=== PATIENT | male | born 1945 | race Caucasian/White ===

== ENCOUNTER 2016-09-27 06:10 | Day surgery (SDC) | payer MEDICARE ==
--- NOTE | 2016-09-25 15:50 | PCM.ANEPRE ---
Anesthesia Pre-Op Review Reason for Review: SURGEON'S REQUEST-"CARDIAC CONCERNS", BMI 44.68, STOP BANG Anesthesia Recommendations: Proceed with Procedure Additional Comments 70yo M scheduled for knee arthroscopy. 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 It responded well to adenosine. Work-up since that time has been negative including nuclear stress test and echo. Both of which were essentially normal. He is on a beta-michael which he should definitely take on the DOS or on the night before surgery--whichever he is normally scheduled for. Otherwise this is a low-risk procedure in a patient who has a negative cardiac w/u. Re- evaluate on DOS. Main Gonzalez MD Sep 25, 2016 15:49
[~2016-09-27] VITALS: Ht 172.7 cm; Wt 131.0 kg
[2016-09-27] VITALS (17 sets, daily range): BP systolic 54–117; BP diastolic 36–68; PULSE 60–80; RESP 12–24; O2SAT 91–97
[~2016-09-27 06:10] MED LIST: ACET325C PO; ALBU8.5H2 INHALATION; ALBU90AE IH; CIPR-231 PO; CLOB15CR3 TOP; COLC0.6T52 PO; CeFAZolin Inj 3 GM in Dextrose 5% 50 ML IV ONE; CeFAZolin Inj 3 GM in IV Premix 1 EACH IV ONE; FENO200C PO; FURO80TA83 PO; INSU100I18 SUBQ; IPRA3AMP IH; LISI-571 PO; Lactated Ringer's 1,000 ML IV SCH; METO25TA6 PO; NPH,100I SUBQ; SERT100T9 PO; SIMV40TA5 PO; TAMS0.4C98 PO; ZYL100 PO
[2016-09-27] MEDS ORDERED: EPHEDrine/NS 5 mg/mL 5 mL Syringe ONE (06:11)
[2016-09-27] MEDS ORDERED: fentaNYL-PF 50 mCg/mL 2 mL Inj ONE (06:11)
[2016-09-27] MEDS ORDERED: Phenylephrine/NS 100 mCg/mL 10 mL Syringe IVPUSH ONE (06:11)
[2016-09-27] MEDS ORDERED: Chloroprocaine-MPF 2% 20 mL Inj ONE (06:11)
[2016-09-27] MEDS ORDERED: CeFAZolin Inj 3 Gm/ D5W 50 mL Bag IV ONE (06:19)
[2016-09-27] MEDS ORDERED: Lactated Ringer's 1,000 ML IV ONE (06:50)
[2016-09-27] MEDS ORDERED: MethylprednisoLONE Depot 40 mg/mL Inj ARTICULAR ONE (08:45)
[2016-09-27] MEDS ORDERED: Lidocaine 2%-Epi 1:100,000 20 mL Inj INFILTRATE ONE (08:45)
[2016-09-27] MEDS ORDERED: Lactated Ringer's 500 ML IV PRN (08:56)
[2016-09-27] MEDS ORDERED: Lactated Ringer's 1,000 ML IV SCH (08:56)
--- NOTE | 2016-09-27 08:56 | PCM.HPANE ---
Patient Data Date of Service: Sep 27, 2016 (0810) Surgeon Admitting Provider: Attending Provider:Jonathan Alarcon MD Primary Care Physician:Jesús Jackson MD Other Provider: Reason for Visit Left Knee Medial Meniscus Tear Ht/WT & BMI Height (Feet): 5 Height (Inches): 8.00 Weight (Kilograms): 131.040 Body Mass Index 43.00 Allergies Coded Allergies: NSAIDS (Non-Steroidal Anti-Inflamma (Verified Allergy, Unknown, UNKNOWN, ) gabapentin (Verified Allergy, Unknown, UNKNOWN, 09/22/16) lisinopril (Verified Allergy, Unknown, UNKNOWN (PT IS TAKING LOW-DOSE DRUG ), 09/22/16) metformin (Verified Allergy, Unknown, UNKNOIWN, 09/22/16) tamsulosin (Verified Adverse Reaction, Severe, DIZZINESS (PT DENIES ALLERGY & IS TAKING DRUG), 09/22/16) Past Anesthesia History Anesthesia History: Denies:: Anesthesia Reactions, Malignant Hyperthermia Diabetes History Hx Diabetes?: Yes (NPH 50 units @0530) Type of Diabetes: Type II Glycemic Control: Insulin Dependent Current Bedside Blood Glucose: 177 MRSA MRSA: No Medications Hypertension Medication: Yes (LISINOPRIL,LASIX) Home Meds Incl Beta Phylicia: Yes (metoprolol) Date Beta Phylicia Taken: Sep 27, 2016 Time Beta Phylicia Taken: 614 Active Scripts Tamsulosin (Flomax)0.4 Mg Capsule0.4 Mg PO DAILY #30 CAPSULE Prov:CHRIS HUGHES DO 06/26/16 Reported Medications Simvastatin 40 Mg Xljpcl29 Mg PO HS 30 Days Ref 0 09/22/16 Acetaminophen 325 Mg Dxrzdsk331-011 Mg PO Q6H PRN PRN 09/22/16 Sertraline HCl (Sertraline)100 Mg Hzlgwz927 Mg PO DAILY 30 Days Ref 0 09/22/16 Albuterol Sulfate (Proair Respiclick)90 Mcg Aer.pow.ba90 Mcg IH Q4-6H PRN PRN 09/22/16 Albuterol HFA (Proair HFA)8.5 Gm Hfa.aer.ad2 Puffs INHALATION Q4H PRN PRN #1 INHALER 09/22/16 Metoprolol Tartrate 25 Mg Oatppq62 Mg PO BID 30 Days Ref 0 09/22/16 Ipratropium/Albuterol Sulfate (Iprat-Albut 0.5-3(2.5) mg/3 mL Inhalant Soln)3 Ml Ampul.neb3 Ml IH AM Ref 0 09/22/16 NPH, Human Insulin Isophane (HUMulin-N U100 Insulin Kwikpen)100 Unit/1 Ml Insuln.pen75 Unit SUBQ BID #1 PENINJ Ref 0 09/22/16 Insulin Lispro (HumaLOG U100 Insulin Pen)100 Unit/1 Ml Insuln.pen1 Unit SUBQ ACHS #1 PENINJ Ref 0 Blood Sugar Lispro Correction <151 0 units 151-175 1 unit 176-200 2 units 201-225 3 units 226-250 4 units 251-275 5 units 276-300 6 units 301-325 7 units 326-350 8 units 351-375 9 units 376-400 10 units >400 12 units Check blood sugars before meals and at bedtime. Use correction factor only before meals. 09/22/16 Furosemide (Lasix)80 Mg Obpsfl615 Mg PO DAILY 30 Days Ref 0 09/22/16 Fenofibrate,Micronized (Fenofibrate)200 Mg Rjcalnr676 Mg PO DAILY Ref 0 09/22/16 Colchicine (Colcrys)0.6 Mg Tablet0.6 Mg PO DAILY PRN GOUT 09/22/16 Clobetasol Propionate/Emoll (Clobetasol Emollient 0.05% Crm)15 Gm Cream..g.1 Appl TOP BID #1 TUBE 09/22/16 Allopurinol 100 Mg Srfzlc011 Mg PO DAILY Ref 0 09/22/16 Discontinued Reported Medications Ciprofloxacin (Cipro)500 Mg Paaaoi971 Mg PO BID Ref 0 09/22/16 Discontinued Scripts Lisinopril 5 Mg Tablet2.5 Mg PO DAILY #30 TABLET Prov:CHRIS HUGHES DO 06/26/16 Atorvastatin Calcium 40 Mg Cynajw75 Mg PO HS #30 TABLET Prov:CHRIS HUGHES DO 06/26/16 Carvedilol 3.125 Mg Tablet3.125 Mg PO BIDWM #14 TABLET Prov:CHRIS HUGHES DO 06/26/16 History History of ENT Problems?: Yes HEENT History: Positive for:: Cataracts (S/P B/L EXTRACTIONS) Denture Type: Full- Upper Full- Lower Hx of Heart Problems?: Yes Cardiovascular History: Positive for:: Chest Pain Coronary Artery Disease (NSTEMI 06/2016) Edema Hypertension (HYPERLIPIDEMIA) Irregular Heartbeat (SVT-MAURI TACHYCARDIA TX W/ O2 & ADENOSINE RATE 160) Peripheral Vascular (S/P RT CAROTID ENDARTERECTOMY W/ SHUNT & PATCH) Denies:: Cardiac Surgery Congestive Heart Failure Heart Murmur (ECHO 06/2016 EF 60-65%) Pacemaker Thrombophlebitis Valvular Heart Disease Hx of Respiratory Problem?: Yes Respiratory History: Positive for:: COPD Dyspnea (PRINGLE ASSOC W/ NSTEMI 06/2016) Pneumonia Use of Inhalers / NEBS Denies:: Asthma Chest Surgery Emphysema Hemoptysis Tuberculosis Use of C-PAP Machine Hx Neurologic Problems?: Yes Neurological History: Positive for:: Headaches (migraines in the distant past) Denies:: Alzheimer's Disease CVA Dementia Dizziness Parkinson's Disease Seizures Hx of GI Problems?: Yes Other GI Pertinent History: S/P APPY Hx of Problems?: Yes Genitourinary History: Denies:: HX of Hemodialysis (HX CHRONIC RENAL INSUFFICIENCY) Kidney Stones Urinary Tract Infection HX of Peritoneal Dialysis: No Other Pertinent History: C/OF LUTS Male Hx: Positive for:: Prostate Problems (BPH) Denies:: Scrotal Mass Testicular Surgery Skin History: Denies:: History Skin Disorders? Pressure Ulcers Hx Musculoskeletal Problems?: Yes Musculoskeletal History: Positive for:: Back Injury (lower back pain, 2 prior herniated discs) Musculoskeletal Trauma (LT KNEE MENISCAL TEAR=CURRENT PROBLEM) Osteoarthritis Denies:: Joint Replacement Hx of Psycho/Social Problems?: Yes Psycho Social History: Positive for:: Hx Depression Denies:: Anxiety Bipolar Disorder Suicide Attempt Hx Surgeries?: Yes (SPINE SURGERY,CATARACTS,APPY,RT CAROTID ENDARTERECTOMY) Hx Any Other Health Problems?: Yes Other History: Positive for:: Hospitalization (pneumonia, back surgery, carotid endarterectomy) Denies:: Cancer Endocrine Disease Thyroid Disease History Blood Transfusions: Positive for:: Blood Transfusions Denies:: Blood Transfuse Reaction Hx Diabetes: Yes (NPH 50 units @0530)Bedside Blood Glucose: 177 Hx Alcohol Use: NoHx Substance Use: No Smoking Status: Former Smoker Have You Smoked inLast 12 mo: No Stop/Bang S-Snoring: Do You Snore Loudly: No T-Tired: feel tired, fatigued: Yes O-Obsered: Observed not breath: No P-Blood Pressure: treated: Yes B- Body Mass Index > 35 kg/m2: Yes A- Age over 50: Yes N- Neck Large Circumference: Yes G- Gender Male: Yes MIGUELINA Total Score: 6 Risk Assessment Category Category 1A: Patient has history of documented sleep apnea, and HAS NOT received any narcotic, sedative or anesthesia administration during this stay. Category 1B: Patient has history of documented sleep apnea, and HAS received any narcotic , sedative or anesthesia administration during this stay Category 2: Patient has SUSPECTED Obstructive Sleep Apnea, and HAS received any narcotic , sedative or anesthesia administration during this stay. Category 3: Patient has SUSPECTED Obstructive Sleep Apnea and HAS NOT received narcotic, sedative or anesthesia administration during this stay. Category 4: Outpatient in Procedural Areas with known sleep apnea or who screen positive for High Risk via the STOP/BANG questionnaire. Exam Exam Vital Signs Vital Signs Date Time Temp Pulse Resp B/P Pulse Ox O2 Delivery O2 Flow Rate FiO2 09/27/16 06:33 36.2 80 24 92/45 91 Room Air General Appearance: Alert, Oriented X3, Cooperative, No Acute Distress HEENT/AIRWAY: MP 3 Lungs: Diminished Heart: Exam Unremarkable Meds/Labs/Diagnostics Admission Meds Current Medications Lactated Ringer's (Lr) 1,000 ml @ ud STK-MED ONCE IV Last administered on 09/27t 06:50; Start 09/27/16 at 06:50; Stop 09/27/16 at 07:39; Status DC Bedside Blood Glucose: 177 Plan Impression Patient chart reviewed, patient interviewed and anesthestic plan with risks, benefits, and alternatives discussed, and informed consent obtained. NPO Status: 09/26@2100 ASA Physical Status: ASA3 Severe Disease (miguelina, iddm, morbid obesity) Anesthetic Plan: SAB Bene/Risks/Altern/Consents: Yes HP Complete Prior to Induction: Yes Miles Thao MD Sep 27, 2016 08:56
[2016-09-27] MEDS ORDERED: MetoCLOpramide 5 mg/mL 2 mL Inj IVPUSH PRN (09:00)
[2016-09-27] MEDS ORDERED: EPHEDrine Sulfate 50 mg/mL Inj IVPUSH PRN (09:00)
[2016-09-27] MEDS ORDERED: Ondansetron 2 mg/mL 2 mL Inj IVPUSH PRN (09:00)
[2016-09-27] MEDS ORDERED: Dexamethasone 4 mg/mL Inj IVPUSH PRN (09:00)
[2016-09-27] MEDS ORDERED: fentaNYL-PF 50 mCg/mL 2 mL Inj IVPUSH PRN (09:00)
[2016-09-27] MEDS: Phenylephrine 10,000 mCg/mL Inj IVPUSH PRN ×4 (09:33→09:57)
[2016-09-27] MEDS: Phenylephrine/NS-PF 100 mCg/mL 5 mL Syringe IVPUSH ONE ×2 (09:33→09:57)
[2016-09-27] MEDS ORDERED: HYDROcodone-APAP 5-325 mg Tablet PO PRN (09:35)
--- NOTE | 2016-09-27 09:36 | PCM.ORTHOB ---
Immediate Operative Note Date of Service: Sep 27, 2016 Pre Operative Diagnosis Left knee degenerative medial meniscal tear Post Operative Diagnosis Same Procedure Left knee arthroscopic partial medial meniscectomy Surgeon Surgeon: Jonathan Alarcon MD Assistants: None Findings Left knee medial compartment degenerative tear of posterior horn medial meniscus just medial to the meniscal root and extending to the posterior horn. 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 Anterior cruciate ligament appeared chronically partially torn but was stable to probing. Lateral compartment was better preserved diffuse grade 1-2 chondromalacia affecting the majority of the weightbearing surface of the lateral femoral condyle and grade 1-3 chondromalacia affecting the majority of the weightbearing surface on the tibial side. Minor inner periphery fraying of the lateral meniscus. Lateral meniscus was otherwise stable to probing. Medial and lateral gutters were free of loose bodies. Patellofemoral compartment was remarkable for diffuse grade 2 chondromalacia and the majority of the undersurface of the patella. Grafts, Implants: None Complications There were no periprocedural complications identified. Condition Stable Anesthetic Administered: SAB Drains: None Catheters: None Output, Estimated Blood Loss: 2 Blood Admin during surgery: No Surgical Cast or Splint: None Additional Information Tourniquet time 18 minutes Surgical Specimen Removed: No Surgical Specimen sent to Path: No Post Operative Plan The patient will be discharged daycare surgery when protocols met. The patient may weight-bear as tolerated beginning postop day #1. The patient will resume his preoperative knee strengthening exercises as soon as possible. Patient will be seen for routine wound check on her after postop day #5. The patient should be able to resume light activities of daily living by the time of suture removal on or after postoperative day #12. Jonathan Alarcon MD Sep 27, 2016 09:35
--- NOTE | 2016-09-27 09:40 | PCM.ORTHOP ---
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 Patient describes sharp catching pain in the inside of his knee with turning and twisting left knee activities. Patient's symptoms have not resolved with activity modification and an attempted knee rehabilitation and strengthening. The patient's preoperative exam reveals tenderness to palpation in the medial joint line and positive Ashish sign with left knee range of motion mildly reduced in otherwise stable. Preoperative MRI of the patient's left knee reveals a tear of the medial meniscus posterior horn and degenerative changes primarily in the medial compartment. The patient presents for a temporizing left knee arthroscopic partial medial meniscectomy. Findings Left knee medial compartment degenerative tear of posterior horn medial meniscus just medial to the meniscal root and extending to the posterior horn. 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 Anterior cruciate ligament appeared chronically partially torn but was stable to probing. Lateral compartment was better preserved diffuse grade 1-2 chondromalacia affecting the majority of the weightbearing surface of the lateral femoral condyle and grade 1-3 chondromalacia affecting the majority of the weightbearing surface on the tibial side. Minor inner periphery fraying of the lateral meniscus. Lateral meniscus was otherwise stable to probing. Medial and lateral gutters were free of loose bodies. Patellofemoral compartment was remarkable for diffuse grade 2 chondromalacia and the majority of the undersurface of the patella. Details of Procedure The patient was brought to the OR. Patient received a spinal anesthetic performed by the anesthesia service. He was then placed in the supine position and tourniquet was placed high about the left thigh. Left lower extremity was prepped and draped in usual sterile fashion and tourniquet inflated to 275 mmHg. We placed 2 infrapatellar portals, one medial and one lateral. We instilled lactated Ringer's with epinephrine went directly to the medial compartment. We confirmed the presence of a degenerative tear of the posterior horn of the medial meniscus and degenerative changes in the medial compartment. We used a combination of arthroscopic shaver and arthroscopic basket biting instruments to debride the meniscal tear back to a stable base. We used the arthroscopic shaver to perform a limited chondroplasty of the loose cartilaginous fragments in the medial femoral condyle tibial articular surface. We then reviewed the rest of the knee. We found the anterior cruciate ligament to have chronic and minor. Anterior tearing. The ligament was otherwise stable. The lateral compartment was reviewed. We found early degenerative changes both sides of the joint. The lateral meniscus was intact and stable to probing with mild inner periphery fraying. We reviewed the medial lateral gutters and found to be free of loose bodies. Patellofemoral compartment was reviewed. We found diffuse grade 2 chondromalacia in the patellar undersurface. We thoroughly irrigated the knee and removed the scope and instruments. 30 mL 2% lidocaine with epinephrine and 40 mg of Depo-Medrol was instilled. The arthroscopic portal sites were closed with interrupted 4-0 nylon sutures. Wounds dressed with Xeroform dry gauze dressings. Tourniquet was deflated the patient was taken back to PACU in stable and satisfactory condition. There were no complications. Patient tolerated the procedure well. Grafts, Implants: None Complications There were no periprocedural complications identified. Condition Stable Anesthetic Administered: SAB Drains: None Catheters: None Output, Estimated Blood Loss: 2 Blood Admin during surgery: No Surgical Cast or Splint: None Addtional Information Tourniquet time 18 minutes Surgical Specimen Removed: No Specimen sent to Pathology: No Post Operative Plan The patient will be discharged daycare surgery when protocols met. The patient may weight-bear as tolerated beginning postop day #1. The patient will resume his preoperative knee strengthening exercises as soon as possible. Patient will be seen for routine wound check on her after postop day #5. The patient should be able to resume light activities of daily living by the time of suture removal on or after postoperative day #12. copies to: Jesús Jackson MD; Jonathan Alarcon MD, Michael G.E MD Sep 27, 2016 09:40
--- NOTE | 2016-09-27 09:50 | PCM.ANEP1 ---
Post Anesthesia Phase 1 PACU Phase 1 Assessment Date of Service: Sep 27, 2016 Vital Signs Vital Signs Date Time Temp Pulse Resp B/P Pulse Ox O2 Delivery O2 Flow Rate FiO2 09/27/16 06:33 36.2 80 24 92/45 91 Room Air Anesthetic Administered: SAB Level of Alertness: Awake, talking AWAN's with Equal Strength: No Pain: No Nausea or Vomiting: No Oxygen Delivery: Room Air Lungs: Diminished Miles Thao MD Sep 27, 2016 09:50
--- NOTE | 2016-09-27 09:50 | PCM.ANEP2 ---
Post Anesthesia Evaluation ASA/CMS Post Anesthesia VS in Patient's Normal Range?: Yes Resp Stable; Airway Patent?: Yes CV Function & Hydration Stable: Yes Mental Status Recovered?: Yes Pain control Satisfactory?: Yes N/V Control Satisfactory?: Yes Miles Thao MD Sep 27, 2016 09:50
== END 2016-09-27 23:59 | disposition home or self-care (01) ==
LOC: SAS 06:10
PROVIDERS: ATTEND Orthopaedic Surgery
DX: M23.222 Derangement of posterior horn of medial meniscus due to old tear or injury, left knee (principal); M17.12 Unilateral primary osteoarthritis, left knee; M22.42 Chondromalacia patellae, left knee; I12.9 Hypertensive chronic kidney disease with stage 1 through stage 4 chronic kidney disease, or unspecified chronic kidney disease; N18.9 Chronic kidney disease, unspecified; I25.10 Atherosclerotic heart disease of native coronary artery without angina pectoris; J44.9 Chronic obstructive pulmonary disease, unspecified; E11.9 Type 2 diabetes mellitus without complications; Z87.891 Personal history of nicotine dependence; Z79.4 Long term (current) use of insulin; Z79.51 Long term (current) use of inhaled steroids
CPT/HCPCS: 29881; J0690; J1030; J2250; J2370; J2400; J7120